=== PATIENT | female | born 1970 | race Caucasian/White ===

== ENCOUNTER 2016-06-17 23:40 | Emergency (ER) | payer OTHER ==
[~2016-06-17] VITALS: Ht 162.6 cm; Wt 175.9 kg
[~2016-06-17 23:40] MED LIST: ANTIBIOTIC PO; CIPRO500 MG PO; DILAUDID2 MG PO; ENDOCET 5-3251 EACH PO; HYDROCODON-ACE1 EAC7 PO; IMITREX100 MG PO; KEFLEX500 MG PO; MOTRIN800 MG PO; NAPROSYN500 MG PO; NAPROXEN500 MG PO; NARATRIPTAN HC2.5 MG PO; NO HOME MEDS; PERCOCET 5/31 TABLET PO; PHENERGAN25 MG PR; PROAIR HFA8.5 GM IH; PROMETHAZINE HC25 M1 PO; REGLAN10 MG PO; TAMSULOSIN HCL0.4 MG PO; ZOFRAN ODT4 MG PO; ZOFRAN ODT8 MG PO; ZOFRAN4 MG PO; ZOFRAN8 MG PO
[2016-06-17 23:43] VITALS: BP 129/97
[2016-06-18] MEDS ORDERED: NORCO 5/3251 TABLET PO (02:22)
[2016-06-18] MEDS ORDERED: NAPROXEN500 MG PO (02:22)
== END 2016-06-18 03:02 | disposition home or self-care (01) ==
LOC: RME 23:40 → EME 23:40 → RME 06-18 03:02
DX: M25.561 Pain in right knee (principal); M17.11 Unilateral primary osteoarthritis, right knee
CPT/HCPCS: 73564; 93971; 99281; 99284

== ENCOUNTER 2016-07-31 16:46 | Emergency (ER) | payer OTHER ==
[~2016-07-31] VITALS: Ht 162.6 cm; Wt 176.8 kg
[~2016-07-31 16:46] MED LIST changes: +NORCO 5/3251 TABLET PO
[2016-07-31 18:15] LABS: EOSINOPHIL (%) 0.6 % (0-5); EOSINOPHIL COUNT 0.1 K/uL (0-0.3); HEMATOCRIT 40.3 % (36.0-46.0); IMMATURE GRANULOCYTE (%) 1.2 % (0.0-0.7); IMMATURE GRANULOCYTE COUNT 0.2 K/uL; INSTRUMENT ABS NEUTROPHIL CT 11.4 K/uL; LYMPHOCYTE COUNT 1.3 K/uL (1.0-2.8); MCH 28.3 PG (29.0-34.0); MCHC 31.8 G/DL (30.0-36.0); MCV 89.2 FL (83-99); MEAN PLAT.VOLUME 9.8 uM^3 (9.5-12.4); MONOCYTE (%) 2.4 % (3-12); MONOCYTE COUNT 0.3 K/uL (0-0.8); NEUTROPHIL (%) 85.7 % (45-76); NEUTROPHIL COUNT 11.4 K/uL (1.8-6.4); PLATELET COUNT 292 K/uL (156-360); RBC DIS.WIDTH-CV 13.8 % (11.8-14.6); RBC DIS.WIDTH-SD 45.1 % (39-53); RED BLOOD COUNT 4.52 M/uL (3.80-5.20); WHITE BLOOD COUNT 13.3 K/uL (4.1-10.2)
[2016-07-31 18:24] LABS: CHLORIDE 101 mEq/L (99-109); POTASSIUM 4.5 mEq/L (3.7-5.4); SODIUM 137 mEq/L (136-147)
[2016-07-31 18:27] LABS: ANION GAP 13 MEQ/L (2-14)
[2016-07-31 18:29] LABS: GFR ESTIMATE (CALCULATED) > 59 mL/min/; GLUCOSE 406 mg/dL (70-99)
[2016-07-31 18:30] LABS: UREA NITROGEN (BUN) 18 mg/dL (9-23)
[2016-07-31 18:37] LABS: TROP-I INTERPRETATION NEGATIVE; TROPONIN-I < 0.01 ng/mL (0.0-0.30)
[2016-07-31 19:51] LABS: POINT-OF-CARE METER ID UU14100415
[2016-07-31] MEDS ORDERED: FIORICET 50-301 EACH PO (22:07)
[2016-07-31] MEDS ORDERED: COMPAZINE10 MG PO (22:08)
[2016-07-31 22:09] LABS: POINT-OF-CARE METER ID UU14100415
[2016-07-31 22:18] VITALS: BP 159/86
== END 2016-07-31 22:20 | disposition home or self-care (01) ==
LOC: EME 16:46
PROVIDERS: Emergency Medicine
DX: G43.909 Migraine, unspecified, not intractable, without status migrainosus (principal); R73.9 Hyperglycemia, unspecified; Z87.442 Personal history of urinary calculi
CPT/HCPCS: 70450; 80048; 82948; 84484; 85025; 93005; 99281; 99285; J0780; J1200; J1885; J7030